=== PATIENT | male | born 1995 | race Caucasian/White ===

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

== ENCOUNTER 2017-02-12 11:40 | Emergency (ER) | payer SELFPAY ==
[~2017-02-12] VITALS: Ht 177.8 cm; Wt 143.0 kg
[2017-02-12 11:59] VITALS: TEMP 36.9; Ht 177.8 cm; Wt 143.0 kg
[2017-02-12] MEDS ORDERED: DIPH1TAB PO (12:04)
[2017-02-12] MEDS ORDERED: PRED20TA2 PO (12:39)
[2017-02-12 12:51] VITALS: BP 136/88; PULSE 70; O2SAT 97
--- NOTE | 2017-02-12 13:37 | Pharmacy Progress Note ---
ED Pharmacist Progress Note Date of Service: Feb 12, 2017. Received call from outpatient pharmacy requesting clarification on prednisone prescription - both 5 days and 4 days listed as LOT. Spoke sakshi Mendoza who confirmed 5 day course. Informed outpatient pharmacy.
--- NOTE | 2017-02-13 14:10 | EMERGENCY ROOM VISIT NOTE ---
ED Visit Note First contact with patient: 12:21 CHIEF COMPLAINT: I think I have poison arie. HISTORY OF PRESENT ILLNESS: Mr. Ann is a 21-year-old male who ambulates into the ED accompanied by female complaining of a rash on his arms, cheek and neck. Historically patient reports he develops significant poison arie dermatitis when exposed. He reports over the last couple of years he has had 2-3 episodes per year that requires steroids Patient reports yesterday he was at a picnic and was trying to be careful but when he arrived home he noted poison arie on his anterior forearms. Since that time it has spread to the posterior forearms, the right cheek and the anterior bilateral thighs. He denies any pain with the rash but does reports it significantly itchy. He has noted some mild erythema around his vesicles. He has taken Benadryl which has helped the itching and has used [id number] steroids ointments but has seen no changes in rash and he feels like it starts to spread. He denies any associated fevers, chills, other skin eruptions, skin color changes, upper respiratory tract symptoms, tongue swelling, sensations of throat swelling, cough, wheezing, shortness of breath, difficulty breathing. REVIEW OF SYSTEMS: As noted above in History of Present Illness; 5 body systems reviewed with the patient and found to be negative unless noted above otherwise. PMH: As previously noted. CURRENT MEDICATION: Patient denies. ALLERGIES TO MEDICATION: Patient denies. 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 PHYSICAL EXAM: Vital Signs: Date Time Temp Pulse Resp B/P (MAP) Pulse Ox O2 Delivery O2 Flow Rate FiO2 02/12/17 12:51 70 136/88 97 02/12/17 11:59 36.9 69 16 136/88 97 General: 21-year-old male in no acute distress, nontoxic-appearing, afebrile and hemodynamically stable. Neurological: Awake, alert and oriented 3. Answering questions appropriately and following commands. Skin: There is an erythematous eruption over the right cheek, anterior and posterior aspects of both forearms, posterior neck and anterior aspects of the bilateral thighs. Over top of the erythema there are small vesicles. No lymphangitis. No appearance of cellulitis. HEENT: Atraumatic and normocephalic. Oral cavity is moist and pink. Airway is patent. No tongue or lip swelling. Normal voice. Lungs: Clear to auscultation and equal bilaterally with symmetrical chest wall movements. No wheezing, rales or rhonchi. ED COURSE: Patient is assessed as noted above. Patient's medication list was reviewed. Patient was educated about today's findings and instructed on his treatment plan ; he verbalized understanding and agreement with this plan. CLINICAL IMPRESSION: Poison arie dermatitis. DISPOSITION: Patient discharged home in stable condition; prior to departure he was reassessed and subjectively reported he was feeling the same. PLAN: Patient was prescribed prednisone 60 mg once a day for 5 days. Patient was encouraged use 25-50 mg of Benadryl every 6 hours as needed for itching. Patient was encouraged use cool compresses/ice on areas of severe itching. Patient was encouraged to avoid hot showers and baths. Patient was encouraged to follow-up with his PCP for recheck in 3-4 days if no better. Patient was encouraged return ED for worsening rash, shortness of breath, sensations of throat swelling, fevers or any new/concerning symptoms.
== END 2017-02-12 12:55 | disposition home or self-care (01) ==
LOC: C.EDB 11:41 → C.EDD 12:55
DX: L23.7 Allergic contact dermatitis due to plants, except food (principal); Z72.0 Tobacco use